=== PATIENT | female | born 1990 | race Caucasian/White ===

== ENCOUNTER → 2018-09-30 | Day surgery (SDC) | payer OTHER ==
[~2018-09-30] MED LIST: B-121000 MCG; BIOTIN800 MCG; CEFTRIAXONE SOD 1 GM VIAL ONE; CRESTOR10 MG; FENTANYL CITRATE/PF 100MCG/2 ML INJ ONE; HYDROXYZINE HCL25 MG PO; IOPAMIDOL 610MG/1ML 300 MG/ML VIAL IV ONE; LIDOCAINE HCL 2% LOCAL INJ 5 ML SDV VIAL INJ ONE; MEPERIDINE HCL INJ 50 MG/ML INJ ONE; METFORMIN HCL500 MG PO; MIDAZOLAM HCL 2 MG/2 ML VIAL ONE; OXYBUTYNIN CHLOR5 MG PO; PROPOFOL IV EMULSION 10 MG/ML 20 ML VIAL ONE; SEVOFLURANE INHAL SOLN 250 ML PEN BTL ONE; SPIRONOLACTONE25 MG PO; URIBEL CAPSULE1 EACH; VITAMIN D31000 UNIT; [UNRECOGNIZED DRUG - OTHER]
[2018-09-30 07:16] LABS: ANION GAP 14.9 mmol/L (8-16); BLOOD UREA NITROGEN 11 mg/dL (7-26); BUN/CREATININE RATIO 13 (6-25); CALCIUM 9.5 mg/dL (8.4-10.2); CARBON DIOXIDE 23 mmol/L (22-29); CHLORIDE 103 mmol/L (98-107); CREATININE, SERUM 0.82 mg/dL (0.57-1.11); EST GLOMERULAR FILTRATION RATE > 60 ML/MIN (60-); GLUCOSE 97 mg/dL (74-118); POTASSIUM 3.9 mmol/L (3.5-5.1); SODIUM 137 mmol/L (136-145)
[2018-09-30 08:45] VITALS: BP 105/91
--- NOTE | 2018-09-30 13:57 | Operative Report ---
DATE OF PROCEDURE: September 30, 2018 PREOPERATIVE DIAGNOSES 1. Multiple chronic urinary tract infections. 2. Clinical signs and symptoms of interstitial cystitis. 3. Microscopic hematuria. POSTOPERATIVE DIAGNOSES 1. Multiple chronic urinary tract infections. 2. Clinical signs and symptoms of interstitial cystitis. 3. Microscopic hematuria. PROCEDURES 1. Cystourethroscopy with hydrodistention (entirely separate procedure for clinical signs and symptoms of interstitial cystitis without gross hematuria). 2. Cystourethroscopy with left ureter catheterization and left retrograde pyelogram (separate procedure for multiple chronic urinary tract infections). 3. Cystourethroscopy with right ureter catheterization and right retrograde pyelogram (separate procedure for multiple chronic urinary tract infections and hematuria). 4. Supervision of fluoroscopy. 5. Interpretation of retrograde pyelography. ANESTHESIA: General. ESTIMATED BLOOD LOSS: Minimal. COMPLICATIONS: None. INDICATIONS FOR PROCEDURE: Ms. Hemphill is a very pleasant 27-year-old female with multiple chronic urinary tract infections and clinical symptoms of interstitial cystitis. She and I had a long discussion about alternatives, risks and benefits including doing nothing, cystoscopy, IVP, retrograde pyelograms, and renal ultrasound. She voiced understanding of the options, alternatives, risks and benefits and elected to proceed. PROCEDURE IN DETAIL: After informed consent was obtained, the patient was taken to the operative suite and she was placed supine on the operating table and underwent general anesthesia by the anesthesia service. She was placed in the dorsal lithotomy position and sterilely prepped and draped in the standard fashion for cystoscopy. A 21-Ukrainian cystoscope was inserted per urethra and a normal urethra was noted. Panendoscopy revealed no tumors and no stones. Both ureteral orifices were within normal anatomic location and position efflux of the urine. There was mild squamous metaplasia. A hydrodistention was performed that revealed a capacity of only 600 mL. There were positive glomerulations seen. At this time, bilateral retrograde pyelogram was performed which was normal. The bladder was drained. The patient was awakened from anesthesia and transported to the recovery room in excellent condition. SUPERVISION OF FLUOROSCOPY, INTERPRETATION OF RETROGRADE PYELOGRAPHY: I was present throughout the entire procedure and I supervised the use of fluoroscopy. There was no radiologist present at any time during this procedure. Attention was turned toward the left and right ureteral orifices, which were catheterized with an 8-Ukrainian cone-tipped catheter in a retrograde fashion. Contrast was injected revealing delicate ureters, delicate pelvicaliceal systems. There was no evidence of filling defects and no evidence of hydronephrosis. IMPRESSION: Normal retrograde pyelograms. Of note, there was no family available to speak with after this procedure was done. Job#: [id number] FISH
== END | disposition home or self-care (01) ==
LOC: OR 05:17
PROVIDERS: ATTEND Urology
DX: N39.0 Urinary tract infection, site not specified (principal); R35.1 Nocturia; N39.46 Mixed incontinence; F17.210 Nicotine dependence, cigarettes, uncomplicated; Z88.5 Allergy status to narcotic agent; Z91.041 Radiographic dye allergy status; Z91.040 Latex allergy status; Z98.1 Arthrodesis status
CPT/HCPCS: 36415; 52005; 74420; 80048; 81025; C1758; J0696; J2001; J2175; J2250; J2704; Q9967